=== PATIENT | male | born 1980 | race Caucasian/White ===

== ENCOUNTER 2017-12-23 08:44 | Emergency (ER) | payer OTHER ==
[~2017-12-23] VITALS: Ht 175.3 cm; Wt 72.6 kg
[2017-12-23 09:21] VITALS: Ht 175.3 cm; Wt 72.6 kg
[2017-12-23 10:17] LABS: BASOPHIL % 0.1 % (0-2); PLATELET COUNT 221 x10^3mcL (130-400); RED CELL DISTRIBUTION WIDTH 13.1 % (11.5-14.5)
[2017-12-23 10:30] LABS: CALCIUM 8.5 mg/dL (8.5-10.1); CARBON DIOXIDE 27.1 mmol/L (21-32); CHLORIDE SERUM 103 mmol/L (98-107); GFR1 > 60 mL/min; GLUCOSE SERUM 91 mg/dL (74-106); POTASSIUM SERUM 3.2 mmol/L (3.5-5.1); SODIUM SERUM 138 mmol/L (136-145)
[2017-12-23 10:34] LABS: ALBUMIN 3.8 g/dL (3.4-5.0); ALKALINE PHOSPHATASE 54 U/L (46-116); ALT/SGPT 22 U/L (16-63); AMYLASE 47 U/L (25-115); AST/SGOT 17 U/L (15-37); BILIRUBIN TOTAL 0.6 mg/dL (0.20-1.00); TOTAL PROTEIN, SERUM 7.8 g/dL (6.4-8.2)
[2017-12-23 12:49] VITALS: BP 142/77
== END 2017-12-23 12:49 | disposition home or self-care (01) ==
LOC: ED 08:44
PROVIDERS: Emergency Medicine
DX: L02.01 Cutaneous abscess of face (principal)
CPT/HCPCS: J0696; J7030; Q9967